=== PATIENT | female | born 1975 | race Caucasian/White ===

== ENCOUNTER 2022-01-09 00:34 | Emergency (ER) | payer OTHER ==
[~2022-01-09] VITALS: Ht 167.6 cm; Wt 62.1 kg
== END 2022-01-09 14:15 | disposition home or self-care (01) ==
LOC: ER 00:34
DX: R56.9 Unspecified convulsions (principal); Z91.013 Allergy to seafood; E87.6 Hypokalemia

== ENCOUNTER 2022-01-30 14:29 | Emergency (ER) | payer OTHER ==
[~2022-01-30] VITALS: Ht 170.2 cm; Wt 61.7 kg
== END 2022-01-30 20:47 | disposition home or self-care (01) ==
LOC: ER 14:29
DX: S50.852A Superficial foreign body of left forearm, initial encounter (principal); X58.XXXA Exposure to other specified factors, initial encounter; Y93.9 Activity, unspecified; Y92.9 Unspecified place or not applicable; Y99.9 Unspecified external cause status; I80.8 Phlebitis and thrombophlebitis of other sites

== ENCOUNTER 2022-01-31 08:13 | Outpatient (CLI) | payer OTHER | END 2022-01-31 08:16 | disposition home or self-care (01) | LOC: NUCLEAR 08:13 | PROVIDERS: ATTEND General Practice | DX: I80.8 Phlebitis and thrombophlebitis of other sites (principal); S50.859A Superficial foreign body of unspecified forearm, initial encounter; Z91.013 Allergy to seafood ==

== ENCOUNTER 2022-03-05 13:09 | Outpatient (CLI) | payer OTHER | END 2022-03-05 23:00 | disposition home or self-care (01) | LOC: LAB 13:09 | PROVIDERS: ATTEND Specialist | DX: I49.9 Cardiac arrhythmia, unspecified (principal); I10 Essential (primary) hypertension ==

== ENCOUNTER 2023-05-15 08:27 | Emergency (ER) | payer OTHER ==
[~2023-05-15] VITALS: Ht 170.2 cm; Wt 61.2 kg
== END 2023-05-15 11:12 | disposition home or self-care (01) ==
LOC: ER 08:28
DX: S01.02XA Laceration with foreign body of scalp, initial encounter (principal); W45.8XXA Other foreign body or object entering through skin, initial encounter; Y93.89 Activity, other specified; Y92.010 Kitchen of single-family (private) house as the place of occurrence of the external cause; Z91.013 Allergy to seafood; Z91.041 Radiographic dye allergy status

== ENCOUNTER 2023-08-06 23:51 | Emergency (ER) | payer OTHER ==
[~2023-08-06] VITALS: Ht 170.2 cm; Wt 62.6 kg
== END 2023-08-07 06:43 ==
LOC: ER 23:52
DX: R00.2 Palpitations (principal); Z91.041 Radiographic dye allergy status; Z91.013 Allergy to seafood

== ENCOUNTER 2024-06-09 08:16 | Emergency (ER) | payer OTHER ==
[~2024-06-09] VITALS: Ht 170.2 cm; Wt 63.0 kg
[2024-06-09 10:27] LABS: HEMOGLOBIN 12.5 g/dL (12.0-15.00); MEAN CELL VOLUME 94.1 fL (80.00-100.00); MEAN CORPUSCULAR HEMOGLOBIN 32.7 pg (27.00-32.0); MEAN CORPUSCULAR HGB CONC 34.8 g/dl (32.0-36.0); PLATELET COUNT 284 K/uL (150-450); RED BLOOD COUNT 3.82 M/uL (4.00-6.00); RED CELL DISTRIBUTION WIDTH 13.4 % (11.5-14.5)
== END 2024-06-09 14:08 | disposition home or self-care (01) ==
LOC: ER 08:18
PROVIDERS: General Practice
DX: R53.81 Other malaise (principal); R05.9 Cough, unspecified; Z20.822 Contact with and (suspected) exposure to COVID-19; Z91.013 Allergy to seafood; Z91.041 Radiographic dye allergy status

== ENCOUNTER 2024-07-13 05:38 | Emergency (ER) | payer OTHER ==
[~2024-07-13] VITALS: Ht 170.2 cm; Wt 70.8 kg
[2024-07-13 05:56] VITALS: BP 121/81; O2SAT 99
[2024-07-13] MEDS ORDERED: TRAMADOL HCL 50 MG TABLET PO STA (08:55)
== END 2024-07-13 11:22 | disposition home or self-care (01) ==
LOC: ER 05:40
DX: S90.32XA Contusion of left foot, initial encounter (principal); W19.XXXA Unspecified fall, initial encounter; Y93.89 Activity, other specified; Y92.89 Other specified places as the place of occurrence of the external cause; Y99.8 Other external cause status; Z91.013 Allergy to seafood; Z91.041 Radiographic dye allergy status